=== PATIENT | female | born 1955 ===

== ENCOUNTER 2024-12-18 09:39 | Outpatient (AMB) | payer MEDICARE, SELFPAY ==
--- NOTE | 2024-12-18 09:46 | A.OFFVIS_ITS ---
Intake Visit Reasons: 6m HPI Comments Details: 69 years old woman with with migraine wihtout aura type of headaches. She used to see Dr. Bowling and apparently had tried some medicines including Ajovy and Emgality. She went back to topiramate and noted that she was feeling better. Headaches were still happening but not as bad. No obvious side effects. She is presenting with headache. She experiences bilateral headaches in the mornings, lasting approximately two hours. The pain also affects her eyes. The current medication regimen includes topiramate taken during morning hours, which provides some relief, although this regimen has been adjusted to leverage higher dosing. Additionally, she reports sleep disturbances characterized by increased dreaming and broken sleep. This pattern involves frequent dreaming and awakening after short periods of sleep. There is no mention of other aggravating neurophysiological symptoms, nor did she note particular triggers correlated with her headaches. Review of Systems Narrative - Neurological: Reports headache and disrupted sleep with frequent dreaming. Denies other neurological symptoms such as numbness or weakness. - Ophthalmologic: Reports pain affecting the eyes. Physical Exam Neuro Other: Mental Status: Alert and oriented to person, place, and time. Normal attention. Normal spontaneous speech, fluency, and comprehension. No obvious issues with mood and memory. Affect is appropriate. Cranial Nerves: CN II: Visual frye full to confrontation, visual acuity intact. CN III, IV, : Pupils equal, round, reactive to light and accommodation. Extraocular movements are normal. CN V: Facial sensation is normal. CN VII: Facial movements symmetrical. CN VIII: Hearing intact to bedside conversation is normal. CN IX, X: Palate elevates symmetrically. CN XI: Shoulder shrug and head turn symmetrical. CN XII: Tongue midline without atrophy or fasciculations. Motor: Bulk and tone normal in all extremities. No significant muscle weakness in arms and legs. No drift. Coordination: Prjzim-za-uges and oztx-jp-xtor testing normal. No dysmetria. Gait and Station: No obvious gait abnormality. No ataxia or instability. Extrapyramidal: Full facial expressions and blinking. No rigidity. Movements are appropriate with no tremor or abnormality. Speech: Normal; no dysarthria or tremor. Assessment & Plan Assessment & Plan (1) Migraine without aura: Code(s): G43.009 - Migraine without aura, not intractable, without status migrainosus Category: Medical Qualifiers: Status migrainosus presence: without status migrainosus Intractability: not intractable Qualified Code(s): G43.009 - Migraine without aura, not intractable, without status migrainosus Plan Impression recommendations: 69 years old woman with migraine without aura. Topiramate has helped but she was still having waking up headaches. She would take topiramate in the morning and headache would soon disappear. She also complain of having frequent dreams at night. She was advised to try taking to piramate at bedtime to see if that would help. Medications: Refilled topiramate 50 mg PO DAILY 90 tabs 0RF 90 days Coding Level of Care Code Est Pt Level 4 (95159) Diagnoses Migraine without aura and without status migrainosus, not intractable G43.009 Status migrainosus presence: without status migrainosus Intractability: not intractable
--- OUTSIDE RECORDS SUMMARY | 2024-12-18 10:50 | XMS_ITS | Encounter Summary ---
Author Organization [facility] Address [address] [place] [id number] Care Team Providers Care High Court Justice Name Role Phone Pooja Hodges MD Primary Care Provider [phone] Encounter Details Date Type Department Care Team (Late Contact Info) Description 12/01/2024 Results Follow-Up Internal Medicine [address] [phone] Pooja Hodges MD [address] [place] [phone] Social History Tobacco Use Types Packs/Day Years Used Date Smoking Tobacco: Never Smokeless Tobacco: Never Alcohol Use Standard Drinks/Week Comments Never 0 (1 standard drink = 0.6 oz pur e alcohol) Comments No Sex and Gender Information Value Date Recorded Sex Assigned at Not on file Legal Sex Female 5:21 PM EST Gender Identity Not on file Sexual Orientation Not on file documented as of this encounter Plan of Treatment Upcoming Encounters Date Type Department Care Team (Late Contact Info) Description 05/02/2025 8:30 AM EDT Office Visit Internal Medicine [address] [phone] Pooja Hodges MD [address] [place] [phone] documented as of this encounter Visit Diagnoses Not on filedocumented in this encounter Additional Health Concerns Assessment Noted Time PHQ-9 Depression Total Score: 0 03/01/19 9:19 AM EST A fall risk assessment has been complete d for the patient 03/01/2024 9:16 AM EST documented as of this encounter Care Teams High [address] Justice Relationship Specialty Start Date End Date Pooja Hodges MD [address] [place] [phone] PCP - General Internal Medicine 11/20/20 documented as of this encounter
--- OUTSIDE RECORDS SUMMARY | 2024-12-18 10:50 | XMS_ITS | Clinical Summary ---
Author Organization [facility] Address [address] [facility] [address] [place] [phone] Phone Care Team Providers Care Community Relations Advisor Name Role Phone Manjinder Alejo MD Unavailable [phone] Marie Arana MD Unavailable [phone] Harry Romero MD Unavailable [phone] Allergies Active Allergy Reactions Criticality Noted Date Comments Iodinated Contrast Media Rash Low 01/11/2018 Medications fluticasone-lukas anterol 100-25 mcg/dose DsDv Inhale into the lungs daily. Active omeprazole (PRILOSEC) 20 mg TbEC Take 20 mg by mouth daily before breakfast. As needed. Active cholecalciferol , vitamin D3, 1,000 unit capsule Take 1,000 Units by mouth daily. Active magnesium gluconate (MAGONATE) 500 mg (27 mg elemental) Tab Take 240 mg by mouth daily. Active aspirin 81 MG EC tablet Take 81 mg by mouth daily. Active metFORMIN (GLUCOPHAGE) 500 MG tablet TAKE 1 TABLET BY MOUTH EVERY DAY WITH BREAKFAST 90 tablet 1 0 Active simvastatin (ZOCOR) 5 MG tabletIndicatio ns:Dyslipidemia TAKE 1 TABLET (5 MG TOTAL) BY MOUTH NIGHTLY AT BEDTIME. 90 tablet 1 0 Active Active Problems Problem Noted Date Diagnosed Date Other constipation 11/28/2018 Gluteal pain 11/28/2018 Diabetes mellitus Overview (05/21/2018): type 2 borderline Asthma Dyslipidemia Immunizations Immunization Administration Dates Next Due COVID-19 (Pre-12/05) Pfizer Vaccine, mRNA, PF 05/25/2020 Influenza Quadrivalent Preservative Free IM 11/13,11/28/2018,01/11/2018 Pneumococcal polysaccharide PPSV23 08/26/2011 Tdap 01/09/2012 Family History Medical History Relation Comments Diabetes Brother 1 Esophageal cancer Brother 1 Lung cancer Brother 1 age 72 Diabetes Brother 2 Relation Status Comments Brother 1 Brother 2 Social History Tobacco Use Types Packs/Day Years Used Date Smoking Tobacco: Never Smokeless Tobacco: Never Alcohol Use Standard Drinks/Week Comments No 0 (1 standard drink = 0.6 oz pur e alcohol) Education Answer Date Recorded Are you interested in more education? Not on kerry e 06/09/2022 Are you concerned about learning? Not on file 06/09/2022 No 06/09/2022 No 06/09/2022 Digital Access Answer Date Recorded No 07/11/2022 No 07/11/2022 Reliable internet access at home? Not on file 07/11/2022 Device with a working camera? Not on file Comments No Sex and Gender Information Value Date Recorded Sex Assigned at Not on file Legal Sex Female 7:10 PM EST Gender Identity Not on file Sexual Orientation Not on file Occupation Industry Job Start Date Job End Date at home/disability - syncope Not on file Not on file Not on file Last Filed Vital Signs Vital Sign Reading Time Taken Comments Blood Pressure 120/78 12/02/2019 2:58 PM EDT Pulse 68 12/02/2019 2:58 PM EDT Temperature 36.6 C (97.9 F) 12/02/2019 2:58 PM EDT Respiratory Rate 16 11/28/2018 3:11 PM EDT Oxygen Saturation 97% 12/02/2019 2:58 PM EDT Inhaled Oxygen Concentration - - Weight 99.7 kg (219 lb 12.8 oz) 12/02/2019 2:58 PM EDT Height 162.6 cm (5' 4 ) 12/02/2019 2:58 PM EDT Body Mass Index 37.73 12/02/2019 2:58 PM EDT Plan of Treatment Health Maintenance Due Date Last Done Comments BLOOD PRESSURE 1957 COLOGUARD 2002 FIT TEST 2002 FOBT 2002 SIGMOIDOSCOPY 2002 VIRTUAL COLONOSCOPY 2002 RSV VACCINE (1 - Risk 50-74 years 1-dose series) 2007 ZOSTER VACCINES (1 of 2) 2007 PNEUMOCOCCAL VACCINES (50+ years) (2 of 2 - PCV) 08/25/2012 08/26/2011 URINE MICROALBUMIN/CREATININE RATIO 01/11/2018 DEPRESSION SCREENING 01/11/2019 01/11/2018 PAP SMEAR 11/05/2019 11/04/2014 HEMOGLOBIN A1C 05/21/2020 11/21/2019, 04/2019, 11/22/2018 DIABETIC EYE EXAM 09/25/2020 09/26/2019, , 09/20/2018, Additional history exists CREATININE LEVEL 11/20/2020 11/21/2019, 04/2019, 06/28/2018, Additional history exists LIPID PANEL 11/20/2020 11/21/2019, 11/13, 11/22/2018, Additional history exists Adult Td,Tdap Booster 01/08/2022 01/09/2012 MAMMOGRAM 02/17/2022 02/18/2020, 05/2020, 02/06/2020, Additional history exists OSTEOPOROSIS SCREENING INITIAL (ONE-TIME) 2022 INFLUENZA VACCINE (#1) 2024 , 11/28/2018, 01/11/2018 COVID-19 VACCINE (2 - season) 2024 05/25/2020 COLONOSCOPY 09/29/2029 09/30/2019 COLORECTAL CANCER SCREENING 09/29/2029 HEPATITIS C SCREENING Completed 07/17/2019 SMOKING STATUS SCREENING (Once After 26 Yrs) Completed 12/02/2019 HEPATITIS A VACCINES Aged Out No long er eligible based on patient's age to complete this topic HIB VACCINES Aged Out No longer eligi ble based on patient's age to complete this topic MENINGOCOCCAL VACCINES (ACWY) Aged Out No longer eligible based on patient's age to complete this topic MENINGOCOCCAL VACCINES (B) Aged Out N o longer eligible based on patient's age to complete this topic Medical Devices Not on file Procedures Procedure Name Priority Date/Time Associated Diagnosis Comments HM MAMMOGRAPHY Routine 02/18/2020 HEMOGLOBIN A1C Routine 11/21/2019 8:05 AM EDT Type 2 diabetes mellitus without complication, without long-term current use of insulin LIPID PANEL Routine 11/21/2019 8:05 AM EDT Dyslipidemia COMPREHENSIVE METABOLIC PANEL (CMP) Routine 11/21/2019 8:05 AM EDT Type 2 diabetes mellitus without complication, without long-term current use of insulin COLONOSCOPY FOR RESULT ENTRY ONLY Routine 09/30/2019 HM DIABETES EYE EXAM FOR RESULT ENTRY ONLY Routine 09/26/2019 OUTSIDE HEPATITIS C VIRUS SCREENING Routine 07/17/2019 HM PAP SMEAR FOR RESULT ENTRY ONLY Routine 11/04/2014 from Last 3 Months or Most Recently Relevant to Health Maintenance Results * MAMMOGRAPHY FOR RESULT ENTRY ONLY (02/18/2020) Mervat Keys MD HEALTH MAINTENANCE Final Result * (ABNORMAL) Comprehensive metabolic panel (11/21/2019 8:05 AM EDT) SODIUM 141 133 - 146 mmol/L [facility] POTASSIUM 4.3 3.3 - 5.1 mmol/L [facility] CHLORIDE 106 96 - 108 mmol/L [facility] CO2 26 21 - 35 mmol/L [facility] BUN 21(H) 6 - 19 mg/dL [facility] CREATININE 0.80 0.5 - 1.5 mg/dL [facility] GLUCOSE 139(H) 70 - 99 mg/dL [facility] ALBUMIN 3.7(L) 3.9 - 4.8 g/dL [facility] TOTAL PROTEIN 6.2(L) 6.5 - 8.0 g/dL [facility] CALCIUM 8.9 8.4 - 10.3 mg/dL [facility] ALKALINE PHOSPHATASE 89 39 - 117 U/L [facility] TOTAL BILIRUBIN 0.3 0.0 - 1.2 mg/dL [facility] AST 18 0 - 37 U/L [facility] ALT 12 0 - 40 U/L [facility] GLOBULIN 2.5 1 - 4.8 g/dL [facility] EGFR 79 >59 mL/min/1.7 3m2 [facility] Comment:Estimated glomerular filtration rate calculated using the CKD-EPI equation. ANION GAP 13 10 - 20 mmol/L [facility] Blood 11/21/2019 8:05 AM EDT 11/21/2019 8:09 AM EDT us Mervat Keys MD LAB BLOOD BKR ORDERABLES Final R esult Performing Organization Address City/[facility]/ZIP Co de Phone Number [address] [address] * (ABNORMAL) Hemoglobin A1c (11/21/2019 8:05 AM EDT) HEMOGLOBIN A1C 6.2(H) 4.3 - 5.8 % [facility] Blood 11/21/2019 8:05 AM EDT 11/21/2019 8:09 AM EDT Mervat Keys MD LAB BLOOD BKR ORDERABLES Final R esult Performing Organization Address City/[facility] Co de Phone Number [address] [address] * (ABNORMAL) Lipid panel (11/21/2019 8:05 AM EDT) HDL 51 mg/dL [facility] Comment: Interpretation <40 mg/dL: Low HDL cholesterol (major risk factor for CHD) Greater than or equal to 60 mg/dL: High HDL cholesterol ( negative risk factor for CHD) HDL - cholesterol is affected by a number of factors, e.g. smoking, excerise, hormones, sex and age. CHOLESTEROL 143 0 - 240 mg/dL [facility] TRIGLYCERIDES 123 30 - 160 mg/dL [facility] LDL 67 50 - 129 mg/dL [facility] Comment: LDL levels in terms of risk for coronary heart disease: <100 mg/dL: Optimal 100-129 mg/dL: Near or above optimal 130-159 mg/dL: Borderline high 160-189 mg/dL: High >190 mg/dL: Very High CARDIAC RISK RATIO 2.8(L) 3.3 - 4.4 C [facility] Blood 11/21/2019 8:05 AM EDT 11/21/2019 8:09 AM EDT Mervat Keys MD LAB BLOOD BKR ORDERABLES Final R esult [facility] [address] [place] [address] * COLONOSCOPY FOR RESULT ENTRY ONLY (09/30/2019) Historical Provider HEALTH MAINTENANCE Final Result * HM DIABETES EYE EXAM FOR RESULT ENTRY ONLY (09/26/2019) EYE EXAM no retinopathy Historical Provider HEALTH MAINTENANCE Final Result * Outside Hepatitis C Virus Screening (07/17/2019) Pathologist [facility] Hepatitis C Screening - External Neg [facility] Provider LAB BLOOD ORDERABLES Shanae l Result * PAP SMEAR FOR RESULT ENTRY ONLY (11/04/2014) Pap smear NILM, HPV negative Historical Provider HEALTH MAINTENANCE Final Result from Last 3 Months or Most Recently Relevant to Health Maintenance Insurance [employer] MEDICARE HMO REPLACEMENT MEDICARE HMO REPLACEMENT MEDICARE HMO REPLACEMENT [employer] [place] [employer] [place] [address] [place] [address] MEDICARE HMO REPLACEMENT [employer]AC[employer] Care Teams Community Relations Advisor Relationship Specialty Start Date End Date Manjinder Alejo MD [address] [place] [address] Ophthalmology 05/15/19 Marie Arana MD [address] [place] [address] [email or web address] Obstetrics and Gynecology 06/28/19 Harry Romero MD [address] [facility] [address] [place] [address] Gastroenterology 07/01/19 Additional Source Comments The information contained in this document represents components of the legal health record. It is not the complete legal health record.[facility]
--- OUTSIDE RECORDS SUMMARY | 2024-12-18 10:50 | XMS_ITS | Clinical Summary ---
Author Organization [facility] Address [address] [place] [address] Phone Care Team Providers Care Speech Teacher Name Role Phone Pooja Hodges MD Primary Care Provider [phone] Allergies Active Allergy Reactions Criticality Noted Date Comments Iodinated Contrast Media 08/14/2019 Medications aspirin 81 mg EC tablet 81 mg daily. 6 Active FREESTYLE LANCETS MISC USE TO TEST BLOOD SUGAR TWICE DAILY DIRECTED 3 Active blood sugar diagnostic (FreeStyle Lite Strips) test strip USE TO TEST BLOOD SUGAR TWICE DAILY 3 Active glucose blood test strip Apply 1 Strip topically 2 times daily as needed for Other (..). 2 Active cholecalciferol (VITAMIN D-3) 25 mcg (1,000 unit) capsule 1,000 Units daily. 3 Active ciprofloxacin-h ydrocortisone (CIPRO HC OTIC) otic suspension Place 3 Drops into the left ear 2 times daily. Tilt head so ear to be treated points towards the ceiling. 4 Active fremanezumab-vf rm (Ajovy Autoinjector) 225 mg/1.5 mL auto-injector Inject into the skin. Injection once a month Active ofloxacin (FLOXIN) 0.3 % otic solution Place 5 Drops into both ears daily for 10 days. Tilt head so ear to be treated points towards the ceiling. 4 Active SUMAtriptan (IMITREX) 25 mg tablet Take 1 Tablet by mouth daily as needed for Migraine. May repeat dose once after 2 hours, if needed. 3 Active topiramate (TOPAMAX) 25 mg tablet Take 1 tablet (25 mg total) by mouth 1 (one) time each day. for 30 days 4 Active meclizine (ANTIVERT) 12.5 mg tablet Take 1 tablet (12.5 mg total) by mouth 2 (two) times a day if needed for dizziness. 60 tablet 5 Active hydrocortisone 2.5 % cream Apply topically 2 (two) times a day. 30 g 2 5 Active hydroCHLOROthia zide 12.5 mg tablet Take 1 tablet (12.5 mg total) by mouth 1 (one) time each day. 90 tablet 3 5 Active omeprazole (PriLOSEC) [address] capsule Take 1 capsule (20 mg total) by mouth 1 (one) time each day. 90 capsule 1 5 Active simvastatin (ZOCOR) 5 mg tablet Take 1 tablet (5 mg total) by mouth at bedtime. 90 tablet 1 5 Active amoxicillin-cla vulanate (AUGMENTIN) 875-125 mg per tablet Take 1 tablet by mouth 2 (two) times a day. 14 tablet 5 Active magnesium oxide 400 mg magnesium capsule Take 1 capsule by mouth at bedtime. 90 capsule 3 5 Active metFORMIN XR (GLUCOPHAGE-XR) 500 mg 24 hr tablet Take 1 tablet (500 mg total) by mouth 2 (two) times a day. 180 tablet 1 5 Active metFORMIN XR (GLUCOPHAGE-XR) 500 mg 24 hr tablet Take 1 tablet (500 mg total) by mouth 2 (two) times a day. 180 tablet 1 5 11/30/19 25 Discontinu ed(Reorder ) magnesium oxide 400 mg magnesium capsule Take 1 capsule by mouth at bedtime. 90 capsule 3 5 11/30/19 25 Discontinu ed(Reorder ) Active Problems Problem Noted Date Diagnosed Date Endometrial carcinoma ([facility]/HCC V24, CMS/HCC V28) 03/27/2023 Assessment & Plan (03/01/2024 12:02 PM EST): Orders: Hemoglobin A1c; Future Comprehensive metabolic panel; Future Complete blood count; Future Magnesium; Future Vertigo 03/27/2023 Assessment & Plan (03/01/2024 12:02 PM EST): Orders: Ambulatory referral to Physical Therapy and Athletic Training; Future ondansetron (ZOFRAN) 4 mg tablet; Take 1 tablet (4 mg total) by mouth every 8 (eight) hours if needed for nausea or vomiting for up to 7 days. Hemoglobin A1c; Future Comprehensive metabolic panel; Future Complete blood count; Future Magnesium; Future Anxiety 07/03/2020 Asthma 07/03/2020 Chronic back pain 07/03/2020 Chronic headaches 07/03/2020 Overview (01/08/2024): followed by Neuro Dr. Joyner Leiomyoma 07/03/2020 Overview (01/08/2024): H/o submucus fibroid Severe obesity (BMI 35.0-39. 9) with comorbidity ([facility] V24, [facility] V28) 07/03/2020 Assessment & Plan (03/01/2024 12:02 PM EST): Orders: Hemoglobin A1c; Future Comprehensive metabolic panel; Future Complete blood count; Future Magnesium; Future Other hyperlipidemia 06/12/2020 Assessment & Plan (03/01/2024 12:02 PM EST): Orders: Hemoglobin A1c; Future Comprehensive metabolic panel; Future Complete blood count; Future Magnesium; Future Type 2 diabetes mellitus wit hout complications ([facility] V24, [facility] V28) 06/12/2020 Assessment & Plan (03/01/2024 12:02 PM EST): Orders: Hemoglobin A1c; Future Comprehensive metabolic panel; Future Complete blood count; Future Magnesium; Future Encounters Date Type Department Care Team Description 12/01/2024 Results Follow-Up Internal Medicine [facility] [address] [facility] [address] [place] [address] Pooja Hodges MD 11/29/2024 9:00 AM EDT Office Visit Internal Medicine [facility] [address] [facility] [address] [place] [address] Pooja Hodges MD Other hyperlipidemia (Primary Dx); Type 2 diabetes mellitus without complication, without long-term current use of insulin ([facility] V24, [facility] V28); Severe obesity (BMI 35.0-39.9) with comorbidity ([facility] V24, [facility] V28); Chronic nonintractable headache, unspecified headache type from Last 3 Months Immunizations Immunization Administration Dates Next Due Influenza Quadravalent, MDCK , 0.5ml, preservative free (Flucelvax) 6mo and older 11/01/2021,11/20/2020 Influenza trivalent, 0.5mL ( Fluad) 65yo and older 11/29/2024 Influenza trivalent, 0.5mL, preservative free (Fluarix; FluLaval; Fluzone) ages 6mo and older (Afluria) 3 years and older 10/29/2013,01/21/2013,01/09/2012,11/18 Influenza trivalent, with pr eservative (Fluzone; Afluria) 6mo and older 12/02/2019,11/28/2018,01/11/2018 ElasticDot SARS-CoV-2 COVID-19, mRNA, LNP-S, preservative free 12/23/2021,06/15/2020 Pneumococcal conjugate 20 va lent (Prevnar 20, PCV 20) 2mo and older 08/02/2024 Pneumococcal polysaccharide 23 valent (Pneumovax 23) 2yo and older 08/26/2011 Tdap Tetanus diptheria acell ular pertussis (Boostrix; Adacel) 7yo and older 01/09/2012 Surgical History Surgery Date Site/Laterality Comments CHOLECYSTECTOMY PROCEDURE: HISTORICAL CHOLECYSTECTOMY ESOPHAGOGASTRODUODENOSCOPY 09/30/2019 PROCEDURE: CT ESOPHAGOGASTRODUODENOSCOPY TRANSORAL DIAGNOSTIC; COMMENT: gastritis COLONOSCOPY 09/30/2019 PROCEDURE: HISTORICAL COLONOSCOPY; COMMENT: Dr. Romero repeat 10 years OTHER SURGICAL HISTORY 2001 PROCEDURE: HISTORY OTHER; COMMENT: endometrial biopsy 2001, 2008 for break through bleeding BACK SURGERY 2013 PROCEDURE: HISTORICAL BACK SURGERY; COMMENT: lumbar disc surgery HYSTERECTOMY N/A PROCEDURE: HISTORICAL HYSTERECTOMY Medical History Medical History Date Comments Type 2 diabetes mellitus wit hout complications ([facility] V24, 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 Joyner Anxiety 07/03/2020 DX:Anxiety Asthma 07/03/2020 DX:Asthma Chronic back pain 07/03/2020 DX:Chronic florecita k pain; COMMENT: saw [facility] Severe obesity (BMI 35.0-39. 9) with comorbidity (CMS/HCC V24, CMS/HCC V28) 07/03/2020 DX:Severe obesity (BMI 35.0- 39.9) with comorbidity (HCC) Leiomyoma 07/03/2020 DX:Leiomyoma History of mammogram DX:History of mammogram; COMMENT: calcifications left breast, scheduled for biopsy 02/12/2021, followed by [facility] breast [facility] wellness History of Papanicolaou smea r of cervix DX:History of Papanicolaou s mear of cervix; COMMENT: Dr. Guevara History of colonoscopy DX:Histor y of colonoscopy; COMMENT: 09/30/2019 Diverticulitis DX:Diverticuliti s Family History Medical History Relation Name Comments Diabetes Brother Breast cancer Neg Hx Colon cancer Neg Hx Relation Name Status Comments Brother Social History Tobacco Use Types Packs/Day Years Used Date Smoking Tobacco: Never Smokeless Tobacco: Never Tobacco Cessation:Counseling Given: Not Answered Alcohol Use Standard Drinks/Week Comments Never 0 (1 standard drink = 0.6 oz pur e alcohol) Comments No Sex and Gender Information Value Date Recorded Sex Assigned at Not on file Legal Sex Female 5:21 PM EST Gender Identity Not on file Sexual Orientation Not on file Obstetrics History Last Filed Vital Signs Vital Sign Reading Time Taken Comments Blood Pressure 124/76 11/29/2024 9:04 AM EDT Pulse 70 11/29/2024 9:04 AM EDT Temperature 36.6 C (97.9 F) 11/29/2024 9:04 AM EDT Respiratory Rate 18 11/29/2024 9:04 AM EDT Oxygen Saturation 97% 11/29/2024 9:04 AM EDT Inhaled Oxygen Concentration - - Weight 87.1 kg (192 lb) 11/29/2024 9:04 AM EDT Height 162.6 cm (5' 4 ) 11/29/2024 9:04 AM EDT Body Mass Index 32.96 11/29/2024 9:04 AM EDT Plan of Treatment Upcoming Encounters Date Type Department Care Team (Late st Contact Info) Description 05/02/2025 8:30 AM EDT Office Visit Internal Medicine - [place] [address] [facility] [address] [place] [address] Pooja Hodges MD [address] [place] [phone] Health Maintenance Due Date Last Done Comments Diabetes: Annual Foot Exam 1967 Diabetes: Annual Retina Eye Exam 1967 Zoster Vaccines (1 of 2) 1976 RSV Immunization Adult Patients (1 - Risk 50-74 years 1-dose series) 2007 DTaP,Tdap,and Td Vaccines (2 - Td or Tdap) 01/08/2022 01/09/2012 Hepatitis C Screening 01/22/2022 Osteoporosis Screening (Bone Density Screening) 01/22/2022 Social Influencers of Health Screening 01/22/2022 Diabetes: Annual Urine Albumin-Creatinine Ratio (uACR) 04/07/2022 04/07/2021 COVID-19 Vaccine ( season) 2024 12/23/2021, 03/15/2021, 06/15/2020, Additional history exists Falls Risk Assessment 03/01/2025 03/01/2024, 025 Medicare Annual Wellness Visit 03/01/2025 03/01/2024 Diabetes: Blood Sugar Control Test (HGBA1C) 05/30/2025 11/29/2024, 08/02/2024, 03/01/2024, Additional history exists Diabetes: Annual GFR (Glomerular Filtration Rate) 11/29/2025 11/29/2024, 08/02/2024, 03/01/2024, Additional history exists Breast Cancer Screening 05/22/2026 05/22/2024 Cholesterol Screening (Lipid Panel) 11/05/2027 11/04/2022, 11/21/2019 Colorectal Cancer Screening: Colonoscopy 09/29/2029 09/30/2019 Depression Screening Completed 03/01/2024 Pneumococcal Vaccine: 50+ Years Completed 08/02/2024, 08/26/2011, 08/26/2011 Influenza Vaccine Completed 11/29/2024, , 11/20/2020, Additional history exists HIB Vaccines Aged Out No longer eligi ble based on patient's age to complete this topic HPV Vaccines Aged Out No longer eligi ble based on patient's age to complete this topic Hepatitis A Vaccines Aged Out No long er eligible based on patient's age to complete this topic Hepatitis B Vaccines Aged Out No long er eligible based on patient's age to complete this topic IPV Vaccines Aged Out No longer eligi ble based on patient's age to complete this topic MMR Vaccines Aged Out No longer eligi ble based on patient's age to complete this topic Meningococcal ACWY Vaccine Aged Out N o longer eligible based on patient's age to complete this topic Meningococcal B Vaccine Aged Out No l onger eligible based on patient's age to complete this topic RSV Immunization Patients Under 20 months Aged Out No longer eligible based on patient's age to complete this topic Varicella Vaccines Aged Out No longer eligible based on patient's age to complete this topic Procedures Procedure Name Priority Date/Time Associated Diagnosis Comments MAGNESIUM Routine 11/29/2024 9:54 AM EDT Other hyperlipidemia Type 2 diabetes mellitus without complication, without long-term current use of insulin ([facility] V24, [facility] V28) Severe obesity (BMI 35.0-39.9) with comorbidity ([facility] V24, [facility] V28) HEMOGLOBIN A1C Routine 11/29/2024 9:54 AM EDT Other hyperlipidemia Type 2 diabetes mellitus without complication, without long-term current use of insulin ([facility] V24, [facility] V28) Severe obesity (BMI 35.0-39.9) with comorbidity ([facility] V24, [facility] V28) BASIC METABOLIC PANEL Routine 11/29/2024 9:54 AM EDT Other hyperlipidemia Type 2 diabetes mellitus without complication, without long-term current use of insulin ([facility] V24, [facility] V28) Severe obesity (BMI 35.0-39.9) with comorbidity ([facility] V24, [facility] V28) EXTERNAL MAMMOGRAM REPORT 05/22/2024 LIPID PANEL Routine 11/04/2022 URINE ALBUMIN CREATININE RATIO Routine 04/07/2021 COLONOSCOPY Routine 09/30/2019 from Last 3 Months or Most Recently Relevant to Health Maintenance Results * Magnesium (11/29/2024 9:54 AM EDT) [facility] Magnesium 2.1 1.9 - 2.6 mg/dL LAB CHEMISTRY METHOD 11/29/2024 2:23 PM EDT [facility] Blood Venous blood specimen / Unknown Venipuncture / Unknown 11/29/2024 9:54 AM EDT 11/29/2024 9:54 AM EDT us Pooja Hodges MD LAB BLOOD ORDERABLES Final Res ult Performing Organization Address City/[facility]/ZIP Co de Phone Number [facility] [address] [place] [address], [place] [phone] * Hemoglobin A1c (11/29/2024 9:54 AM EDT) [facility] Hemoglobin A1C 6.1 <6.5 % LAB CHEMISTRY METHOD 11/29/2024 7:47 PM EDT [facility] Mean Bld Glu Estim. 128 mg/dL LAB CHEMISTRY METHOD 11/29/2024 7:47 PM EDT [facility] Blood Venous blood specimen / Unknown Venipuncture / Unknown 11/29/2024 9:54 AM EDT 11/29/2024 9:54 AM EDT us Pooja Hodges MD LAB BLOOD ORDERABLES Final Res ult Performing Organization Address City/[facility]/ZIP Co de Phone Number [facility] [address] [place] [address], [place] [phone] * (ABNORMAL) Basic metabolic panel (11/29/2024 9:54 AM EDT) Sodium 140 133 - 145 mmol/L LAB CHEMISTRY METHOD 11/29/2024 2:27 PM [facility] Potassium 4.1 3.5 - 5.5 mmol/L LAB CHEMISTRY METHOD 11/29/2024 2:27 PM [facility] Chloride 103 96 - 110 mmol/L LAB CHEMISTRY METHOD 11/29/2024 2:27 PM [facility] CO2 29 21 - 32 mmol/L LAB CHEMISTRY METHOD 11/29/2024 2:27 PM [facility] Anion Gap 8 3 - 11 LAB CHEMISTRY METHOD 11/29/2024 2:27 PM [facility] Glucose 112(H) 70 - 100 mg/dL LAB CHEMISTRY METHOD 11/29/2024 2:27 PM [facility] BUN 24 5 - 25 mg/dL LAB CHEMISTRY METHOD 11/29/2024 2:27 PM [facility] Creatinine 0.90 0.50 - 1.10 mg/dL LAB CHEMISTRY METHOD 11/29/2024 2:27 PM [facility] eGFR 70 >=60 mL/min/1. 73m2 LAB CHEMISTRY METHOD 11/29/2024 2:27 PM [facility] Comment:Calculation based on the Chronic Kidney Disease Epidemiology Collaboration (CKD-EPI) equation refit without adjustment for race. BUN/Creatinine Ratio 26.7 LAB CHEMISTRY METHOD 11/29/2024 2:27 PM [facility] Calcium 9.4 8.5 - 10.5 mg/dL LAB CHEMISTRY METHOD 11/29/2024 2:27 PM [facility] Blood Venous blood specimen / Unknown Venipuncture / Unknown 11/29/2024 9:54 AM EDT 11/29/2024 9:54 AM EDT us Pooja Hodges MD LAB BLOOD ORDERABLES Final Res ult [facility] [address] [place] [address], * External Mammogram Report (05/22/2024) Anatomical Region Laterality Modality Mammography Provider [facility] BI PROCEDURES Final Result * Lipid panel (11/04/2022) Pathologist [facility] LDL/HDL Ratio 3 0 - 4 Triglycerides 128 0 - 150 mg/dL Cholesterol 167 0 - 200 mg/dL HDL 50 >=40 mg/dL LDL Cholesterol 92 0 - 100 mg/dL Blood Venous blood specimen / Unknown Historical Provider LAB BLOOD ORDERABLES Shanae l Result * Urine Albumin Creatinine Ratio (04/07/2021) Pathologist [facility] Urine Albumin Creatinine Ratio Abstracted Historical Provider HEALTH MAINTENANCE Final Result * Colonoscopy (09/30/2019) Pathologist [facility] Colonoscopy No Interpretation , Abstracted Anatomical Region Laterality Modality Other Historical Provider HEALTH MAINTENANCE Final Result from Last 3 Months or Most Recently Relevant to Health Maintenance Insurance [facility] MEDICARE ADVANTAGE Care Teams Speech Teacher Relationship Specialty Start Date End Date Pooja Hodges MD [address] [place] [phone] PCP - General Internal Medicine 11/20/20
== END 2024-12-18 09:52 | disposition home or self-care (01) ==
PROVIDERS: PCP Internal Medicine; Referring Provider Internal Medicine; Visit Provider Psychiatry & Neurology Neurology
DX: G43.009 Migraine without aura, not intractable, without status migrainosus (principal)
CPT/HCPCS: 99214

== ENCOUNTER → 2024-12-18 09:39 | Outpatient (BNVA) | payer MEDICARE, SELFPAY | PROVIDERS: PCP Internal Medicine; Referring Provider Internal Medicine; Visit Provider Psychiatry & Neurology Neurology | DX: G43.009 Migraine without aura, not intractable, without status migrainosus (principal) | CPT/HCPCS: 99212 ==